=== PATIENT | female | born 1980 | race Caucasian/White ===

== ENCOUNTER 2021-04-28 15:09 | Emergency (ER) | payer BC ==
[~2021-04-28] VITALS: Ht 180.3 cm; Wt 104.5 kg
[2021-04-28 15:30] VITALS: BP 150/96
[2021-04-28] MEDS ORDERED: CASIRIVIMAB/IMDEVIMAB inject. 10 ML in normal saline 100ml IV soln 100 ML IV ONE (15:45)
--- NOTE | 2021-04-28 16:34 | NUR ---
pt has read fact sheet on [employer] regarding risks and benefits of taking med, pt decided to refuse medication, Dr Toth aware
== END 2021-04-28 16:49 | disposition home or self-care (01) ==
LOC: ER 15:10
DX: U07.1 COVID-19 (principal)
CPT/HCPCS: 99281

== ENCOUNTER 2021-05-03 12:03 | Emergency (ER) | payer BC ==
[~2021-05-03] VITALS: Ht 180.3 cm; Wt 104.5 kg
[2021-05-03] MEDS ORDERED: normal saline 1000ml 1,000 ML IV ONE (12:45)
[2021-05-03] MEDS ORDERED: CASIRIVIMAB/IMDEVIMAB inject. 10 ML in normal saline 100ml IV soln 100 ML IV ONE (13:30)
--- NOTE | 2021-05-03 14:35 | NUR ---
PATIENT TOLERATED REGENERON W/O DIFFICULTY. NO SIGNS OF A REACTION NOTED.
[2021-05-03 14:41] VITALS: BP 144/94
== END 2021-05-03 14:43 | disposition home or self-care (01) ==
LOC: ER 12:04
DX: U07.1 COVID-19 (principal)
CPT/HCPCS: 96360; 99284; J7030; M0243; Q0244

== ENCOUNTER 2021-05-06 09:39 | Emergency (ER) | payer BC ==
[~2021-05-06] VITALS: Ht 180.3 cm; Wt 104.5 kg
[2021-05-06] MEDS ORDERED: dexamethasone sod phosphate 10mg/ml inj IV STA (09:48)
[2021-05-06] MEDS ORDERED: acetaminophen 325mg tablet PO STA (09:48)
[2021-05-06] MEDS ORDERED: metoclopramide 5 mg/ml inj IV ONE (09:50)
[2021-05-06] MEDS ORDERED: normal saline 1000ML IV soln IV ONE (09:50)
[2021-05-06 10:14] VITALS: BP 129/91
[2021-05-06 10:32] LABS: D-DIMER 0.26 MG/L FEU (0-0.50)
[2021-05-06 10:36] LABS: BASOPHILS % (AUTO) 0.4 % (0-1); EOSINOPHILS % (AUTO) 0.5 % (0-6); HEMATOCRIT 40.6 % (35.0-45.0); HEMOGLOBIN 13.5 g/dl (12.0-16.0); LYMPHOCYTES # (AUTO) 1.4 X10'3 (1.1-4.8); LYMPHOCYTES % (AUTO) 20.6 % (21-51); MEAN CORPUSCULAR HEMOGLOBIN 29.3 PG (27.0-31.0); MEAN CORPUSCULAR HGB CONC 33.3 g/dL (33.0-36.5); MEAN PLATELET VOLUME 9.8 FL (7.4-10.4); MONOCYTES # (AUTO) 0.5 X10'3 (0-0.9); MONOCYTES % (AUTO) 7.2 % (2-12); NEUTROPHILS # (AUTO) 4.8 X10'3 (1.8-7.7); NEUTROPHILS % (AUTO) 71.3 % (42-75); PLATELET COUNT 280 X10'3 (140-440); RED BLOOD COUNT 4.61 X10'6 (4.20-5.60); RED CELL DISTRIBUTION WIDTH 13.4 % (11.5-14.5); WHITE BLOOD COUNT 6.8 X10'3 (4.5-11.0)
[2021-05-06 10:37] LABS: ALANINE AMINOTRANSFERASE 58 U/L (12-78); ALBUMIN/GLOBULIN RATIO 1.1 (1.1-1.5); ALKALINE PHOSPHATASE 62 IU/L (46-116); ANION GAP 14 (8-16); ASPARTATE AMINO TRANSFERASE 20 U/L (10-37); BILIRUBIN,TOTAL 0.5 MG/DL (0.1-1.0); BLOOD UREA NITROGEN 5 MG/DL (7-18); BUN/CREATININE RATIO 7.1 (6.6-38.0); C-REACTIVE PROTEIN 0.05 MG/DL (0.0-0.5); CALCIUM 8.4 MG/DL (8.5-10.1); CHLORIDE 109 MMOL/L (99-107); GLUCOSE 120 MG/DL (70-104); POTASSIUM 3.6 MMOL/L (3.5-5.1); SODIUM 142 MMOL/L (135-145); TOTAL CARBON DIOXIDE 19.4 MMOL/L (24-32); TOTAL PROTEIN 7.7 G/DL (6.4-8.2); eGFR > 90 ML/MIN
[2021-05-06] MEDS ORDERED: PROC25SU31 RC (11:14)
[2021-05-06] MEDS ORDERED: DEXA6TAB PO (11:14)
[2021-05-06] MEDS ORDERED: ONDA4TAB6 PO (11:14)
[2021-05-06] MEDS ORDERED: LORazepam 2 mg/ml vial IV ONE (11:25)
[2021-05-06 11:37] LABS: URINE HCG NEGATIVE (NEG)
[2021-05-06 11:40] LABS: UA COLLECTION TYPE NON-SPECIFIED
[2021-05-06 11:41] LABS: CLARITY,URINE SLIGHTLY CLOUDY (Clear); COLOR,URINE STRAW (Yellow); PH,URINE 7.5 (4.8-8.0)
[2021-05-06 11:42] LABS: GLUCOSE, URINE NEGATIVE (Neg); KETONES,URINE 40 mg/dl (Neg); LEUKOCYTE ESTERASE ,URINE NEGATIVE (Neg); NITRITES, URINE NEGATIVE (Neg); OCCULT BLOOD,URINE NEGATIVE (Neg); PROTEIN,URINE NEGATIVE (Neg); UROBILINOGEN,URINE 0.2 E.U/dL (0.2-1.0)
[2021-05-06 11:48] LABS: BACTERIA,URINE 1+ /HPF (Neg); MUCUS STRANDS FEW /LPF (Neg); RBC,URINE 0-2 /HPF (0-2); SQUAMOUS EPITHELIAL CELL,UR FEW /LPF (FEW); WBC,URINE 0-4 /HPF (0-4)
[2021-05-07] MEDS ORDERED: CYCL-1 PO (07:52)
== END 2021-05-06 13:46 | disposition home or self-care (01) ==
LOC: ER 09:40
DX: U07.1 COVID-19 (principal); E86.0 Dehydration; R11.2 Nausea with vomiting, unspecified; R19.7 Diarrhea, unspecified; Z79.899 Other long term (current) drug therapy
CPT/HCPCS: 36415; 71045; 80053; 81001; 81025; 82948; 84145; 85025; 85379; 86140; 96361; 96374; 96375; 99284; J1100; J2060; J2765; J7030

== ENCOUNTER 2021-05-07 07:27 | Emergency (ER) | payer BC ==
[~2021-05-07] VITALS: Ht 180.3 cm; Wt 104.5 kg
[~2021-05-07 07:27] MED LIST: DEXA6TAB PO; ONDA4TAB6 PO; PROC25SU31 RC
[2021-05-07 07:39] VITALS: BP 132/86
[2021-05-07] MEDS ORDERED: CYCL-1 PO (07:52)
[2021-05-07] MEDS ORDERED: cyclobenzaprine 10mg tablet PO ONE (07:55)
== END 2021-05-07 08:10 | disposition home or self-care (01) ==
LOC: ER 07:27
DX: Z02.89 Encounter for other administrative examinations (principal); R00.0 Tachycardia, unspecified; E86.0 Dehydration; Z79.899 Other long term (current) drug therapy
CPT/HCPCS: 99283